=== PATIENT | female | born 1950 | race Caucasian/White ===

== ENCOUNTER 2016-05-08 17:25 | Emergency (ER) | payer MEDICARE, BC ==
[~2016-05-08] VITALS: Ht 167.6 cm; Wt 86.4 kg
[~2016-05-08 17:25] MED LIST: ABILIFY5 MG PO; AMBIEN10 MG PO; AMLODIPINE BES2.5 MG PO; AMOXICILLIN 8751 TAB PO; ASPIRIN 32325 MG/TAB PO; ASPIRIN 81M81 MG/TA2 PO; ASPIRIN E.C. 8181 MG PO; ATIVAN 0.50.5 MG/TAB PO; ATIVAN1 MG PO; BETAPACE 120MG120 MG PO; BETAPACEAF120 PO; BUSPAR5 MG PO; BUTRANS10 MCG/HR TD; BUTRANS15 MCG/HR TD; BYSTOLIC10 MG PO; CALCIUM PLUS1 TA1 PO; CALCIUM SUPPLEMENT PO; CALCIUM1 CAP PO; CATAPRES 0.1MG0.1 MG PO; CEPHALEXIN500 M1 PO; CHLORESTEROL MED; CRESTOR; CRESTOR 10MG10 MG PO; CRESTOR20 MG PO; DARVOCET N; DARVOCET-N-101 UDTAB PO; DESYREL 100MG100 MG PO; DESYREL 50MG50 MG PO; DIOVAN 160MG160 MG; DIOVAN 160MG160 MG PO; DIOVAN HCT PO; DIOVAN PO; DIOVAN/HCT 12.51 TAB PO; DUO-KAPS1 CAP PO; ELIQUIS 2.5 PO; FLEXERIL 1010 MG/TAB PO; FLEXERIL10 MG PO; FOSAMAX PO; HCTZ; HCTZ 25MG25 MG PO; HCTZ12.5TAB PO; IBUPROFEN600 MG PO; INDERAL 10MG10 MG PO; INDERAL 20MG20 MG PO; LASIX 20MG TABL20 MG; LASIX 20MG TABL20 MG PO; LEVAQUIN 750MG750 M1 PO; LIDODERM 5% PATC1 EA TP; LISINOPRIL PO; LISINOPRIL10 MG PO; LORTAB 7.5/5001 TAB PO; LOVASTATIN10 MG PO; LYRICA; LYRICA 100MG C100 M1 PO; LYRICA 50MG CAP50 MG PO; MACROBID 1100 MG/CAP PO; MAGNESIUM250 M1 PO; MELATONIN3 M1 PO; MELATONIN5 M1 PO; MOTRIN 800800 MG/TAB PO; MS CONTIN 115 MG/TAB PO; MULTI VITAMINS1 TAB PO; MULTIPLE VITAMI1 CAP PO; NEURONTIN100 MG/CAP PO; NEURONTIN400 MG/CAP PO; NEXIUM 20MG CAP20 MG PO; NITROQUICK0.4 MG SL; NITROSTAT0.4 MG/TAB SL; NORCO 325 MG-51 TAB PO; PERCOCET 325 MG1 TA2 PO; PERCOCET 325 MG1 TAB PO; PERCOCET 500 MG1 TAB PO; PERCODAN 325 MG1 TA1 PO; PHENERGAN 25 TA25 MG PO; PHENERGAN25 MG RC; PRADAXA 150MG150 MG PO; PRIL40; PRIL40 PO; PRISTIQ 50 MG T50 MG PO; PRISTIQ100 MG PO; PROAIR HFA0.09 MG/AC IH; PROMETHAZINE12.5 M5 PO; PROVENTIL0.09 MG/A1 IH; Pradaxa PO; RANEXA 500MG T500 MG PO; RANEXA500 MG PO; REMERON 15M15 MG/TA1 PO; RENEXA; RT ADVAIR 228 DISKUS IH; SINGULAIR 110 MG/TAB PO; TRAZODONE50 MG PO; TYLENOL 325MG325 MG PO; TYLENOL W/COD1 UDTAB PO; ULTRAM 50MG TAB50 MG; ULTRAM 50MG TAB50 MG PO; VIIBRYD40 MG PO; VISTARIL 2525 MG/CAP PO; VISTARIL PO; VISTARIL50 MG PO; VITAMIN D PO; WELLBUTRIN SR150 M1 PO; XANAX 0.5MG0.5 MG PO; ZOFRAN ODT4 MG PO; ZOFRAN8 MG PO; [UNRECOGNIZED DRUG - OTHER]
[2016-05-08 17:29] VITALS: TEMP 97.9
[2016-05-08 18:58] VITALS: BP 179/95; PULSE 66
== END 2016-05-08 19:02 | disposition home or self-care (01) ==
LOC: COL.ER 17:25
DX: G43.909 Migraine, unspecified, not intractable, without status migrainosus (principal); I10 Essential (primary) hypertension; I25.10 Atherosclerotic heart disease of native coronary artery without angina pectoris; Z95.1 Presence of aortocoronary bypass graft
CPT/HCPCS: J2300; J2550

== ENCOUNTER → 2016-05-23 | Outpatient (CLI) | payer MEDICARE, BC ==
[~2016-05-23] MED LIST changes: +ELIQUIS 5MG PO; +MEDROL4 MG; +MELATONIN5 M1 SL
== END ==
LOC: COL.RAD 05-21 13:30
DX: D44.0 Neoplasm of uncertain behavior of thyroid gland (principal)

== ENCOUNTER 2016-06-23 01:16 | Emergency (ER) | payer MEDICARE, BC ==
[~2016-06-23] VITALS: Ht 170.2 cm; Wt 90.9 kg
[~2016-06-23 01:16] MED LIST changes: -ELIQUIS 5MG PO; -MEDROL4 MG; -MELATONIN5 M1 SL
[2016-06-23 01:20] VITALS: PULSE 63; TEMP 98
[2016-06-23] MEDS ORDERED: ELIQUIS 5MG PO (01:25)
[2016-06-23] MEDS ORDERED: MELATONIN5 M1 SL (01:26)
[2016-06-23 02:18] VITALS: BP 153/92
== END 2016-06-23 02:34 | disposition home or self-care (01) ==
LOC: COL.ER 01:16
DX: G43.909 Migraine, unspecified, not intractable, without status migrainosus (principal); I25.10 Atherosclerotic heart disease of native coronary artery without angina pectoris
CPT/HCPCS: J2300; J2550

== ENCOUNTER 2016-07-30 15:50 | Emergency (ER) | payer MEDICARE, BC ==
[~2016-07-30] VITALS: Ht 170.2 cm; Wt 91.8 kg
[~2016-07-30 15:50] MED LIST changes: +ELIQUIS 5MG PO; +MELATONIN5 M1 SL
[2016-07-30 15:52] VITALS: TEMP 97.7
[2016-07-30 19:04] VITALS: BP 170/89; PULSE 74
== END 2016-07-30 19:05 | disposition home or self-care (01) ==
LOC: COL.ER 15:50
DX: G43.909 Migraine, unspecified, not intractable, without status migrainosus (principal); I48.91 Unspecified atrial fibrillation; I10 Essential (primary) hypertension; I25.10 Atherosclerotic heart disease of native coronary artery without angina pectoris; Z95.1 Presence of aortocoronary bypass graft; Z85.3 Personal history of malignant neoplasm of breast; Z79.01 Long term (current) use of anticoagulants
CPT/HCPCS: J2270; J2300; J2550

== ENCOUNTER 2016-08-27 23:27 | Emergency (ER) | payer MEDICARE, BC ==
[~2016-08-27] VITALS: Ht 170.2 cm; Wt 94.1 kg
[2016-08-27 23:37] VITALS: BP 128/74; TEMP 98.1
[2016-08-28 01:54] VITALS: PULSE 80
== END 2016-08-28 01:43 | disposition home or self-care (01) ==
LOC: COL.ER 23:27
DX: G43.909 Migraine, unspecified, not intractable, without status migrainosus (principal); I25.10 Atherosclerotic heart disease of native coronary artery without angina pectoris; Z95.1 Presence of aortocoronary bypass graft; I10 Essential (primary) hypertension; J45.909 Unspecified asthma, uncomplicated; F41.9 Anxiety disorder, unspecified; Z79.82 Long term (current) use of aspirin; G62.9 Polyneuropathy, unspecified; K21.9 Gastro-esophageal reflux disease without esophagitis
CPT/HCPCS: J2300; J2550

== ENCOUNTER 2016-09-05 00:13 | Emergency (ER) | payer MEDICARE, BC ==
[~2016-09-05] VITALS: Ht 170.2 cm; Wt 94.5 kg
[2016-09-05 00:16] VITALS: BP 186/94; TEMP 98.2
[2016-09-05] MEDS ORDERED: MEDROL4 MG (00:19)
[2016-09-05 01:13] VITALS: PULSE 71
== END 2016-09-05 01:23 | disposition home or self-care (01) ==
LOC: COL.ER 00:13
DX: R51 Headache (principal); G43.909 Migraine, unspecified, not intractable, without status migrainosus; F03.90 Unspecified dementia, unspecified severity, without behavioral disturbance, psychotic disturbance, mood disturbance, and anxiety; I25.10 Atherosclerotic heart disease of native coronary artery without angina pectoris; D64.9 Anemia, unspecified; Z95.1 Presence of aortocoronary bypass graft
CPT/HCPCS: J2300; J2550

== ENCOUNTER → 2016-10-04 | Outpatient (CLI) | payer MEDICARE, BC ==
[~2016-10-04] MED LIST changes: +MEDROL4 MG
== END ==
LOC: COL.RAD 09:02
DX: S09.90XA Unspecified injury of head, initial encounter (principal); W19.XXXA Unspecified fall, initial encounter; R51 Headache
CPT/HCPCS: A9585

== ENCOUNTER 2016-10-05 20:26 | Emergency (ER) | payer MEDICARE, BC ==
[~2016-10-05] VITALS: Ht 170.2 cm; Wt 95.0 kg
[2016-10-05 20:28] VITALS: BP 192/101; TEMP 98
[2016-10-05 21:15] LABS: BASO # 0.1 (0.0-0.2); BASO % 0.5 % (0.0-2.0); EOS # 0.2 (0.0-0.7); EOS % 2.2 % (0-4.0); GRAN # 8.1 (1.4-6.5); GRAN % 75.5 % (42.2-75.2); LYMPH # 1.6 (1.2-3.4); LYMPH % 14.8 % (20.0-51.0); MEAN CELL VOLUME 83 fl (80.0-100.0); MEAN CORPUSCULAR HEMOGLOBIN 28 pg (27.0-31.0); MEAN CORPUSCULAR HGB CONC 33 g/dl (33.0-37.0); MEAN PLATELET VOLUME 8.9 fl (7.4-10.4); MONO # 0.7 (0.1-0.6); MONO % 6.3 % (1.7-9.3); PLATELET COUNT 370 K/mm3 (130-400); RED BLOOD COUNT 4.36 M/mm3 (4.10-5.30); REDCELL DISTRIBUTION WIDTH-CV 14.8 % (11.5-14.5); WHITE BLOOD COUNT 10.7 K/mm3 (4.8-10.8)
[2016-10-05 21:27] LABS: ADJUSTED CALCIUM 9.7 mg/dL (8.4-10.2); ALBUMIN 3.4 gm/dL (3.5-5.0); BILIRUBIN,TOTAL 0.7 mg/dL (0.0-1.0); CALCIUM 9.2 mg/dL (8.4-10.2); CREATININE, serum 0.87 mg/dL (0.52-1.25); POTASSIUM 3.3 mmol/L (3.4-5.0); TOTAL PROTEIN 6.8 gm/dL (6.4-8.2)
[2016-10-05 23:16] VITALS: PULSE 68
== END 2016-10-05 23:17 | disposition home or self-care (01) ==
LOC: COL.ER 20:26
PROVIDERS: Emergency Medicine
DX: R19.7 Diarrhea, unspecified (principal); G43.909 Migraine, unspecified, not intractable, without status migrainosus; I48.91 Unspecified atrial fibrillation; Z79.01 Long term (current) use of anticoagulants; I25.10 Atherosclerotic heart disease of native coronary artery without angina pectoris; I10 Essential (primary) hypertension; J45.909 Unspecified asthma, uncomplicated; D64.9 Anemia, unspecified; Z85.3 Personal history of malignant neoplasm of breast
CPT/HCPCS: J2300; J2550; J7030

== ENCOUNTER 2016-10-21 01:51 | Emergency (ER) | payer MEDICARE, BC ==
[~2016-10-21] VITALS: Ht 170.2 cm; Wt 94.1 kg
[2016-10-21 01:53] VITALS: TEMP 99.7
[2016-10-21] MEDS ORDERED: ULTRAM 50MG TAB50 MG PO (02:14)
[2016-10-21 04:29] VITALS: BP 131/64; PULSE 68
== END 2016-10-21 04:29 | disposition home or self-care (01) ==
LOC: COL.ER 01:51
DX: S09.90XA Unspecified injury of head, initial encounter (principal); S39.92XA Unspecified injury of lower back, initial encounter; S29.9XXA Unspecified injury of thorax, initial encounter; S00.81XA Abrasion of other part of head, initial encounter; S30.0XXA Contusion of lower back and pelvis, initial encounter; I25.10 Atherosclerotic heart disease of native coronary artery without angina pectoris; Z95.1 Presence of aortocoronary bypass graft; G43.909 Migraine, unspecified, not intractable, without status migrainosus; W01.10XA Fall on same level from slipping, tripping and stumbling with subsequent striking against unspecified object, initial encounter; Y92.009 Unspecified place in unspecified non-institutional (private) residence as the place of occurrence of the external cause; J45.909 Unspecified asthma, uncomplicated
CPT/HCPCS: J2300; J2550

== ENCOUNTER 2016-12-18 22:15 | Emergency (ER) | payer MEDICARE, BC ==
[2016-12-18 22:24] VITALS: TEMP 99.7
[2016-12-19 00:03] LABS: BASO # 0.1 (0.0-0.2); BASO % 0.5 % (0.0-2.0); EOS # 0.2 (0.0-0.7); EOS % 1.9 % (0-4.0); GRAN # 7.8 (1.4-6.5); GRAN % 75.2 % (42.2-75.2); HEMOGLOBIN 14.1 g/dl (12.5-16.0); LYMPH # 1.6 (1.2-3.4); LYMPH % 15.5 % (20.0-51.0); MEAN CELL VOLUME 81 fl (80.0-100.0); MEAN CORPUSCULAR HEMOGLOBIN 27 pg (27.0-31.0); MEAN CORPUSCULAR HGB CONC 33 g/dl (33.0-37.0); MEAN PLATELET VOLUME 9.4 fl (7.4-10.4); MONO # 0.7 (0.1-0.6); MONO % 6.5 % (1.7-9.3); PLATELET COUNT 456 K/mm3 (130-400); REDCELL DISTRIBUTION WIDTH-CV 14.8 % (11.5-14.5); WHITE BLOOD COUNT 10.3 K/mm3 (4.8-10.8)
[2016-12-19 00:22] LABS: ADJUSTED CALCIUM 9.3 mg/dL (8.4-10.2); ALBUMIN 4.2 gm/dL (3.5-5.0); BILIRUBIN,TOTAL 0.8 mg/dL (0.0-1.0); CALCIUM 9.5 mg/dL (8.4-10.2); CREATININE, serum 0.8 mg/dL (0.52-1.25); POTASSIUM 3.5 mmol/L (3.4-5.0); TOTAL PROTEIN 7.9 gm/dL (6.4-8.2)
[2016-12-19 02:53] VITALS: BP 160/112
[2016-12-19 03:18] VITALS: PULSE 91
== END 2016-12-19 03:19 | disposition home or self-care (01) ==
LOC: COL.ER 22:15
PROVIDERS: Emergency Medicine
DX: R63.0 Anorexia (principal); R53.81 Other malaise; R53.1 Weakness; R19.7 Diarrhea, unspecified; B34.9 Viral infection, unspecified; I25.10 Atherosclerotic heart disease of native coronary artery without angina pectoris; I11.0 Hypertensive heart disease with heart failure; I50.9 Heart failure, unspecified; Z95.1 Presence of aortocoronary bypass graft; J45.909 Unspecified asthma, uncomplicated; G43.909 Migraine, unspecified, not intractable, without status migrainosus; E03.9 Hypothyroidism, unspecified
CPT/HCPCS: J2550; J2765; J7030

== ENCOUNTER → 2017-01-16 | Outpatient (CLI) | payer MEDICARE, BC | LOC: COL.RAD 10:29 | DX: N30.20 Other chronic cystitis without hematuria (principal); N28.89 Other specified disorders of kidney and ureter ==

== ENCOUNTER 2017-01-31 14:21 | Emergency (ER) | payer MEDICARE, BC ==
[~2017-01-31] VITALS: Ht 167.6 cm; Wt 86.4 kg
[2017-01-31 14:28] VITALS: BP 135/69; PULSE 68; TEMP 98.9
[2017-01-31] MEDS ORDERED: CEPHALEXIN500 M1 PO (16:46)
== END 2017-01-31 17:08 | disposition home or self-care (01) ==
LOC: COL.ER 14:21
DX: S81.011A Laceration without foreign body, right knee, initial encounter (principal); S20.212A Contusion of left front wall of thorax, initial encounter; I25.10 Atherosclerotic heart disease of native coronary artery without angina pectoris; I48.91 Unspecified atrial fibrillation; J44.9 Chronic obstructive pulmonary disease, unspecified; Z87.39 Personal history of other diseases of the musculoskeletal system and connective tissue; Z79.01 Long term (current) use of anticoagulants; Z79.82 Long term (current) use of aspirin; Z96.651 Presence of right artificial knee joint; W01.198A Fall on same level from slipping, tripping and stumbling with subsequent striking against other object, initial encounter; Y92.009 Unspecified place in unspecified non-institutional (private) residence as the place of occurrence of the external cause

== ENCOUNTER 2017-02-21 22:32 | Emergency (ER) | payer MEDICARE, BC ==
[~2017-02-21] VITALS: Ht 167.6 cm; Wt 90.9 kg
[2017-02-21 22:37] VITALS: TEMP 97.9
[2017-02-21 23:29] LABS: BASO % 0.4 % (0.0-2.0); EOS # 0.5 (0.0-0.7); EOS % 6.4 % (0-4.0); GRAN # 4.9 (1.4-6.5); GRAN % 60.8 % (42.2-75.2); LYMPH # 1.8 (1.2-3.4); LYMPH % 22.4 % (20.0-51.0); MEAN CELL VOLUME 81 fl (80.0-100.0); MEAN CORPUSCULAR HGB CONC 32 g/dl (33.0-37.0); MEAN PLATELET VOLUME 9.5 fl (7.4-10.4); MONO # 0.8 (0.1-0.6); MONO % 9.6 % (1.7-9.3); PLATELET COUNT 278 K/mm3 (130-400); RED BLOOD COUNT 3.97 M/mm3 (4.10-5.30)
[2017-02-21 23:30] LABS: HEMATOCRIT 32.3 % (37.0-47.0); HEMOGLOBIN 10.4 g/dl (12.5-16.0); MEAN CORPUSCULAR HEMOGLOBIN 26 pg (27.0-31.0)
[2017-02-21 23:41] LABS: ADJUSTED CALCIUM 8.8 mg/dL (8.4-10.2); ALBUMIN 3.7 gm/dL (3.5-5.0); BILIRUBIN,TOTAL 0.5 mg/dL (0.0-1.0); CALCIUM 8.6 mg/dL (8.4-10.2); CREATININE, serum 0.91 mg/dL (0.52-1.25); POTASSIUM 3.8 mmol/L (3.4-5.0); TOTAL PROTEIN 6.9 gm/dL (6.4-8.2)
[2017-02-22 01:26] VITALS: BP 157/85
[2017-02-22 02:04] VITALS: PULSE 62
== END 2017-02-22 02:07 | disposition home or self-care (01) ==
LOC: COL.ER 22:32
PROVIDERS: Nurse Practitioner
DX: J45.909 Unspecified asthma, uncomplicated (principal); I11.0 Hypertensive heart disease with heart failure; I50.9 Heart failure, unspecified; I25.10 Atherosclerotic heart disease of native coronary artery without angina pectoris; G43.909 Migraine, unspecified, not intractable, without status migrainosus; F41.9 Anxiety disorder, unspecified; Z95.5 Presence of coronary angioplasty implant and graft; Z79.82 Long term (current) use of aspirin

== ENCOUNTER 2017-03-04 12:04 | Observation (INO) | payer MEDICARE, BC ==
[~2017-03-04] VITALS: Ht 152.4 cm; Wt 83.4 kg
[~2017-03-04 12:04] MED LIST changes: +CEFTIN 250250 MG/TAB PO
[2017-03-04 15:18] LABS: COLLECTION METHOD CLEAN CATCH
[2017-03-04 15:39] LABS: MUCOUS Present /lpf; PH 7 (5-8); URINE APPEARANCE Clear; URINE BACTERIA None Seen /hpf; URINE BILIRUBIN Negative (NEGATIVE); URINE BLOOD Negative (NEGATIVE); URINE COLOR Yellow; URINE GLUCOSE 1+ (NEGATIVE); URINE KETONE 1+ (NEGATIVE); URINE LEUKOCYTE ESTERASE Negative (NEGATIVE); URINE PROTEIN(semi-quant) 2+ (NEGATIVE); URINE RBC 0-2 /hpf; URINE UROBILINOGEN Negative (NEGATIVE); URINE WBC 0-2 /hpf
[2017-03-04 15:56] LABS: BASO # 0.1 (0.0-0.2); BASO % 0.5 % (0.0-2.0); EOS % 0.2 % (0-4.0); GRAN # 8.5 (1.4-6.5); GRAN % 84.3 % (42.2-75.2); HEMOGLOBIN 15.1 g/dl (12.5-16.0); LYMPH # 1.2 (1.2-3.4); LYMPH % 11.4 % (20.0-51.0); MEAN CELL VOLUME 79 fl (80.0-100.0); MEAN CORPUSCULAR HEMOGLOBIN 26 pg (27.0-31.0); MEAN CORPUSCULAR HGB CONC 33 g/dl (33.0-37.0); MEAN PLATELET VOLUME 8.9 fl (7.4-10.4); MONO # 0.3 (0.1-0.6); MONO % 3.2 % (1.7-9.3); PLATELET COUNT 439 K/mm3 (130-400); RED BLOOD COUNT 5.79 M/mm3 (4.10-5.30); WHITE BLOOD COUNT 10.1 K/mm3 (4.8-10.8)
[2017-03-04 16:08] LABS: ADJUSTED CALCIUM 9.3 mg/dL (8.4-10.2); ALBUMIN 4.7 gm/dL (3.5-5.0); CALCIUM 9.9 mg/dL (8.4-10.2); CREATININE, serum 0.69 mg/dL (0.52-1.25); MAGNESIUM 1.4 mg/dL (1.6-2.3); PHOSPHOROUS 2.5 mg/dL (2.5-4.5); TOTAL PROTEIN 8.7 gm/dL (6.4-8.2)
[2017-03-04 16:14] LABS: POTASSIUM 2.9 mmol/L (3.4-5.0)
[2017-03-04 20:43] VITALS: BP 148/62; PULSE 84; TEMP 97.9
[2017-03-04 20:48] LABS: INFLUENZA A NEGATIVE; INFLUENZA B NEGATIVE
[2017-03-05] VITALS (7 sets, daily range): BP systolic 113–137; BP diastolic 56–90; PULSE 70–123; TEMP 97.3–98.3
[2017-03-05] MEDS ORDERED: BETAPACE 120MG120 MG PO (05:26)
[2017-03-05] MEDS ORDERED: BETAPACE 80MG80 MG PO (05:28)
[2017-03-05 07:13] LABS: BASO # 0.1 (0.0-0.2); BASO % 0.5 % (0.0-2.0); EOS # 0.2 (0.0-0.7); GRAN # 6.6 (1.4-6.5); GRAN % 68.2 % (42.2-75.2); HEMATOCRIT 40.3 % (37.0-47.0); LYMPH # 2.1 (1.2-3.4); LYMPH % 21.2 % (20.0-51.0); MEAN CELL VOLUME 81 fl (80.0-100.0); MEAN CORPUSCULAR HEMOGLOBIN 26 pg (27.0-31.0); MEAN CORPUSCULAR HGB CONC 32 g/dl (33.0-37.0); MEAN PLATELET VOLUME 9.5 fl (7.4-10.4); MONO # 0.7 (0.1-0.6); MONO % 7.7 % (1.7-9.3); PLATELET COUNT 389 K/mm3 (130-400); RED BLOOD COUNT 4.99 M/mm3 (4.10-5.30); WHITE BLOOD COUNT 9.7 K/mm3 (4.8-10.8)
[2017-03-05 07:26] LABS: ALBUMIN 3.7 gm/dL (3.5-5.0); BILIRUBIN,TOTAL 0.8 mg/dL (0.0-1.0); CALCIUM 8.8 mg/dL (8.4-10.2); CREATININE, serum 0.86 mg/dL (0.52-1.25); MAGNESIUM 1.9 mg/dL (1.6-2.3); POTASSIUM 3.1 mmol/L (3.4-5.0); TOTAL PROTEIN 6.9 gm/dL (6.4-8.2)
[2017-03-06 03:37] VITALS: PULSE 69; TEMP 97.9
[2017-03-06 07:14] LABS: CALCIUM 8.6 mg/dL (8.4-10.2); CREATININE, serum 1.03 mg/dL (0.52-1.25); POTASSIUM 4.1 mmol/L (3.4-5.0)
[2017-03-06 08:00] VITALS: BP 112/58; PULSE 73; TEMP 98
[2017-03-06] MEDS ORDERED: CEFTIN 250250 MG/TAB PO (11:44)
[2017-03-06 11:47] VITALS: BP 100/48; PULSE 66; TEMP 98
== END 2017-03-06 14:29 | disposition home or self-care (01) ==
LOC: COL.ER 12:04 → MEDICAL 17:35
PROVIDERS: Emergency Medicine; Internal Medicine; Physician Assistant
DX: R11.2 Nausea with vomiting, unspecified (principal); E87.6 Hypokalemia; E83.42 Hypomagnesemia; N39.0 Urinary tract infection, site not specified; I48.0 Paroxysmal atrial fibrillation; I25.10 Atherosclerotic heart disease of native coronary artery without angina pectoris; I10 Essential (primary) hypertension; J45.909 Unspecified asthma, uncomplicated; G43.909 Migraine, unspecified, not intractable, without status migrainosus; D64.9 Anemia, unspecified; E03.9 Hypothyroidism, unspecified; Z85.3 Personal history of malignant neoplasm of breast; F41.9 Anxiety disorder, unspecified; F03.90 Unspecified dementia, unspecified severity, without behavioral disturbance, psychotic disturbance, mood disturbance, and anxiety; K21.9 Gastro-esophageal reflux disease without esophagitis; R53.82 Chronic fatigue, unspecified; Z90.49 Acquired absence of other specified parts of digestive tract; Z79.01 Long term (current) use of anticoagulants; Z96.653 Presence of artificial knee joint, bilateral; Z95.1 Presence of aortocoronary bypass graft; Z82.49 Family history of ischemic heart disease and other diseases of the circulatory system; Z83.3 Family history of diabetes mellitus
CPT/HCPCS: G0378; J2405; J3475; J3480; J7030

== ENCOUNTER 2017-06-20 10:51 | Emergency (ER) | payer MEDICARE, BC ==
[~2017-06-20] VITALS: Ht 167.6 cm; Wt 81.8 kg
[~2017-06-20 10:51] MED LIST changes: +BETAPACE 80MG80 MG PO
[2017-06-20 10:53] VITALS: TEMP 97.9
[2017-06-20 11:40] LABS: ALANINE AMINOTRANSFERASE 24 U/L (9-52); ALKALINE PHOSPHATASE 132 U/L (50-136); ANION GAP 13 mmol/L (7-16); AST,SGOT 30 U/L (15-37); BILIRUBIN,TOTAL 0.3 mg/dL (0.0-1.0); BLOOD UREA NITROGEN 16 mg/dL (7-17); CALCIUM 8.8 mg/dL (8.4-10.2); CARBON DIOXIDE 30 mmol/L (22-30); CHLORIDE 97 mmol/L (98-107); CREATININE, serum 0.88 mg/dL (0.52-1.25); GLUCOSE 115 mg/dL (74-106); POTASSIUM 3.9 mmol/L (3.4-5.0); SODIUM 140 mmol/L (137-145); TOTAL PROTEIN 8.1 gm/dL (6.4-8.2)
[2017-06-20 11:48] LABS: BASO # 0.1 (0.0-0.2); BASO % 0.6 % (0.0-2.0); EOS # 0.3 (0.0-0.7); EOS % 3.7 % (0-4.0); GRAN # 5.6 (1.4-6.5); GRAN % 60.6 % (42.2-75.2); LYMPH # 2.5 (1.2-3.4); LYMPH % 27.2 % (20.0-51.0); MEAN CELL VOLUME 85 fl (80.0-100.0); MEAN CORPUSCULAR HGB CONC 33 g/dl (33.0-37.0); MEAN PLATELET VOLUME 9.9 fl (7.4-10.4); MONO # 0.7 (0.1-0.6); MONO % 7.6 % (1.7-9.3); PLATELET COUNT 356 K/mm3 (130-400); PROTHROMBIN TIME 23.2 SECONDS (9.7-12.8); RED BLOOD COUNT 4.23 M/mm3 (4.10-5.30); REDCELL DISTRIBUTION WIDTH-CV 15.8 % (11.5-14.5)
[2017-06-20 11:50] LABS: HEMATOCRIT 35.9 % (37.0-47.0); HEMOGLOBIN 11.7 g/dl (12.5-16.0); MEAN CORPUSCULAR HEMOGLOBIN 28 pg (27.0-31.0)
[2017-06-20 11:55] LABS: TROPONIN-I < 0.012 ng/mL (0.000-0.034)
[2017-06-20 12:04] LABS: COLLECTION METHOD CLEAN CATCH
[2017-06-20 12:09] LABS: MUCOUS Present /lpf; PH 7 (5-8); SQUAMOUS EPITHELIAL None Seen /hpf; URINE APPEARANCE Clear; URINE BACTERIA None Seen /hpf; URINE BILIRUBIN Negative (NEGATIVE); URINE BLOOD Negative (NEGATIVE); URINE COLOR Yellow; URINE GLUCOSE Negative (NEGATIVE); URINE KETONE Negative (NEGATIVE); URINE LEUKOCYTE ESTERASE Negative (NEGATIVE); URINE NITRATE Negative (NEGATIVE); URINE PROTEIN(semi-quant) Negative (NEGATIVE); URINE RBC 0-2 /hpf; URINE UROBILINOGEN Negative (NEGATIVE)
[2017-06-20 13:23] VITALS: BP 118/70; PULSE 62
== END 2017-06-20 13:25 | disposition home or self-care (01) ==
LOC: COL.ER 10:51
PROVIDERS: Emergency Medicine
DX: R42 Dizziness and giddiness (principal); R07.89 Other chest pain; Z95.1 Presence of aortocoronary bypass graft; Z79.82 Long term (current) use of aspirin; Z79.01 Long term (current) use of anticoagulants; Z79.84 Long term (current) use of oral hypoglycemic drugs
CPT/HCPCS: J7030

== ENCOUNTER 2017-08-01 16:25 | Emergency (ER) | payer MEDICARE, BC ==
[~2017-08-01] VITALS: Ht 167.6 cm; Wt 81.8 kg
[2017-08-01 16:33] VITALS: TEMP 97.8
[2017-08-01] MEDS ORDERED: ZOLOFT 50MG50 MG PO (17:33)
[2017-08-01 17:48] LABS: BASO % 0.2 % (0.0-2.0); EOS # 0.1 (0.0-0.7); EOS % 1.1 % (0-4.0); GRAN # 7.6 (1.4-6.5); GRAN % 80.4 % (42.2-75.2); HEMATOCRIT 42.1 % (37.0-47.0); HEMOGLOBIN 13.8 g/dl (12.5-16.0); LYMPH # 1.2 (1.2-3.4); LYMPH % 13.1 % (20.0-51.0); MEAN CELL VOLUME 84 fl (80.0-100.0); MEAN CORPUSCULAR HEMOGLOBIN 28 pg (27.0-31.0); MEAN CORPUSCULAR HGB CONC 33 g/dl (33.0-37.0); MEAN PLATELET VOLUME 9.2 fl (7.4-10.4); MONO # 0.5 (0.1-0.6); MONO % 4.9 % (1.7-9.3); PLATELET COUNT 343 K/mm3 (130-400); REDCELL DISTRIBUTION WIDTH-CV 15.1 % (11.5-14.5)
[2017-08-01 17:58] LABS: COLLECTION METHOD CATHETER
[2017-08-01 18:04] LABS: MUCOUS Present /lpf; PH 7 (5-8); SQUAMOUS EPITHELIAL None Seen /hpf; URINE APPEARANCE Clear; URINE BACTERIA None Seen /hpf; URINE BILIRUBIN Negative (NEGATIVE); URINE BLOOD Negative (NEGATIVE); URINE COLOR Yellow; URINE GLUCOSE Negative (NEGATIVE); URINE KETONE Negative (NEGATIVE); URINE LEUKOCYTE ESTERASE Negative (NEGATIVE); URINE NITRATE Negative (NEGATIVE); URINE PROTEIN(semi-quant) Negative (NEGATIVE); URINE RBC 0-2 /hpf; URINE UROBILINOGEN Negative (NEGATIVE)
[2017-08-01 18:18] LABS: ALANINE AMINOTRANSFERASE 19 U/L (9-52); ALBUMIN 3.7 gm/dL (3.5-5.0); ALKALINE PHOSPHATASE 186 U/L (50-136); ANION GAP 10 mmol/L (7-16); AST,SGOT 27 U/L (15-37); BILIRUBIN,TOTAL 0.6 mg/dL (0.0-1.0); BLOOD UREA NITROGEN 14 mg/dL (7-17); C-REACTIVE PROTEIN 2.7 mg/dL (0.0-0.9); CALCIUM 9.2 mg/dL (8.4-10.2); CARBON DIOXIDE 27 mmol/L (22-30); CHLORIDE 100 mmol/L (98-107); CREATININE, serum 0.71 mg/dL (0.52-1.25); GLUCOSE 138 mg/dL (74-106); POTASSIUM 3.6 mmol/L (3.4-5.0); SODIUM 137 mmol/L (137-145); TOTAL PROTEIN 7.9 gm/dL (6.4-8.2)
[2017-08-01 18:30] LABS: TROPONIN-I < 0.012 ng/mL (0.000-0.034)
[2017-08-01 19:30] VITALS: BP 139/66; PULSE 66
== END 2017-08-01 20:00 | disposition home or self-care (01) ==
LOC: COL.ER 16:25
PROVIDERS: Emergency Medicine
DX: F41.9 Anxiety disorder, unspecified (principal); R53.1 Weakness; I10 Essential (primary) hypertension; I48.91 Unspecified atrial fibrillation; I25.10 Atherosclerotic heart disease of native coronary artery without angina pectoris; Z85.3 Personal history of malignant neoplasm of breast; Z87.39 Personal history of other diseases of the musculoskeletal system and connective tissue; Z95.1 Presence of aortocoronary bypass graft; Z95.5 Presence of coronary angioplasty implant and graft; Z79.01 Long term (current) use of anticoagulants; Z79.82 Long term (current) use of aspirin
CPT/HCPCS: J7030

== ENCOUNTER 2017-09-05 21:56 | Emergency (ER) | payer MEDICARE, BC ==
[~2017-09-05] VITALS: Ht 170.2 cm; Wt 86.4 kg
[~2017-09-05 21:56] MED LIST changes: +ZOLOFT 50MG50 MG PO
[2017-09-05 22:08] VITALS: TEMP 97.8
[2017-09-06 00:02] VITALS: BP 193/103; PULSE 65
[2017-09-07] MEDS ORDERED: NORVASC 5MG5 MG/TAB PO (22:30)
== END 2017-09-06 00:02 | disposition home or self-care (01) ==
LOC: COL.ER 21:56
DX: G43.909 Migraine, unspecified, not intractable, without status migrainosus (principal); M79.7 Fibromyalgia; I10 Essential (primary) hypertension; F41.9 Anxiety disorder, unspecified; Z90.710 Acquired absence of both cervix and uterus; Z90.49 Acquired absence of other specified parts of digestive tract
CPT/HCPCS: J1170; J2550

== ENCOUNTER 2017-09-06 19:55 | Emergency (ER) | payer MEDICARE, BC ==
[~2017-09-06] VITALS: Ht 170.2 cm; Wt 86.4 kg
[2017-09-06 20:01] VITALS: BP 213/98; TEMP 98.5
[2017-09-06 21:30] VITALS: PULSE 66
[2017-09-07] MEDS ORDERED: NORVASC 5MG5 MG/TAB PO (22:30)
== END 2017-09-06 21:30 | disposition home or self-care (01) ==
LOC: COL.ER 19:55
DX: G43.909 Migraine, unspecified, not intractable, without status migrainosus (principal); Z79.82 Long term (current) use of aspirin
CPT/HCPCS: J2300; J2550

== ENCOUNTER 2017-09-07 19:07 | Emergency (ER) | payer MEDICARE, BC ==
[~2017-09-07] VITALS: Ht 167.6 cm; Wt 86.4 kg
[2017-09-07 19:13] VITALS: TEMP 98.3
[2017-09-07 20:38] LABS: BASO % 0.2 % (0.0-2.0); EOS % 0.3 % (0-4.0); GRAN # 9.8 (1.4-6.5); GRAN % 76.2 % (42.2-75.2); HEMATOCRIT 38.9 % (37.0-47.0); HEMOGLOBIN 12.9 g/dl (12.5-16.0); LYMPH # 2.2 (1.2-3.4); LYMPH % 16.8 % (20.0-51.0); MEAN CELL VOLUME 84 fl (80.0-100.0); MEAN CORPUSCULAR HEMOGLOBIN 28 pg (27.0-31.0); MEAN CORPUSCULAR HGB CONC 33 g/dl (33.0-37.0); MEAN PLATELET VOLUME 9.5 fl (7.4-10.4); MONO # 0.7 (0.1-0.6); MONO % 5.8 % (1.7-9.3); PLATELET COUNT 375 K/mm3 (130-400); RED BLOOD COUNT 4.66 M/mm3 (4.10-5.30)
[2017-09-07 20:48] LABS: ALANINE AMINOTRANSFERASE 17 U/L (9-52); ALBUMIN 4.1 gm/dL (3.5-5.0); ALKALINE PHOSPHATASE 125 U/L (50-136); ANION GAP 11 mmol/L (7-16); AST,SGOT 19 U/L (15-37); BILIRUBIN,TOTAL 0.4 mg/dL (0.0-1.0); BLOOD UREA NITROGEN 16 mg/dL (7-17); C-REACTIVE PROTEIN 0.6 mg/dL (0.0-0.9); CALCIUM 9.2 mg/dL (8.4-10.2); CARBON DIOXIDE 30 mmol/L (22-30); CHLORIDE 92 mmol/L (98-107); CREATINE KINASE 24 U/L (30-135); CREATININE, serum 0.74 mg/dL (0.52-1.25); GLUCOSE 141 mg/dL (74-106); SODIUM 133 mmol/L (137-145); TOTAL PROTEIN 8.1 gm/dL (6.4-8.2)
[2017-09-07 20:57] LABS: ERYTHROCYTE SEDIMENTATION RATE 22 mm/hr (0-30); TROPONIN-I < 0.012 ng/mL (0.000-0.034)
[2017-09-07 21:06] LABS: COLLECTION METHOD CLEAN CATCH
[2017-09-07 21:11] LABS: PH 8 (5-8); SQUAMOUS EPITHELIAL 0-2 /hpf; URINE APPEARANCE Clear; URINE BACTERIA None Seen /hpf; URINE BILIRUBIN Negative (NEGATIVE); URINE BLOOD Negative (NEGATIVE); URINE COLOR Straw; URINE GLUCOSE Negative (NEGATIVE); URINE KETONE Negative (NEGATIVE); URINE LEUKOCYTE ESTERASE Negative (NEGATIVE); URINE NITRATE Negative (NEGATIVE); URINE PROTEIN(semi-quant) Negative (NEGATIVE); URINE RBC 0-2 /hpf; URINE UROBILINOGEN Negative (NEGATIVE)
[2017-09-07 22:27] VITALS: BP 165/99
[2017-09-07] MEDS ORDERED: NORVASC 5MG5 MG/TAB PO (22:30)
[2017-09-07 22:34] VITALS: PULSE 76
[2017-09-08] MEDS ORDERED: VIIBRYD20 MG PO (06:54)
== END 2017-09-07 22:43 | disposition home or self-care (01) ==
LOC: COL.ER 19:07
PROVIDERS: Emergency Medicine
DX: G43.909 Migraine, unspecified, not intractable, without status migrainosus (principal); I10 Essential (primary) hypertension; Z79.82 Long term (current) use of aspirin
CPT/HCPCS: J1170; J2405; J7030

== ENCOUNTER 2017-09-08 05:45 | Emergency (ER) | payer MEDICARE, BC ==
[~2017-09-08] VITALS: Ht 167.6 cm; Wt 86.4 kg
[~2017-09-08 05:45] MED LIST changes: +NORVASC 5MG5 MG/TAB PO
[2017-09-08 05:49] VITALS: BP 159/81; TEMP 98.3
[2017-09-08] MEDS ORDERED: VIIBRYD20 MG PO (06:54)
[2017-09-08 07:40] VITALS: PULSE 70
== END 2017-09-08 07:40 | disposition home or self-care (01) ==
LOC: COL.ER 05:45
DX: G43.909 Migraine, unspecified, not intractable, without status migrainosus (principal); M79.1 Myalgia; I10 Essential (primary) hypertension; F41.9 Anxiety disorder, unspecified; I48.91 Unspecified atrial fibrillation; Z79.82 Long term (current) use of aspirin; Z79.891 Long term (current) use of opiate analgesic
CPT/HCPCS: J1630; J2550

== ENCOUNTER 2017-10-08 10:22 | Emergency (ER) | payer MEDICARE, BC ==
[~2017-10-08] VITALS: Ht 167.6 cm; Wt 84.1 kg
[~2017-10-08 10:22] MED LIST changes: +VIIBRYD20 MG PO
[2017-10-08 10:38] VITALS: TEMP 97.9
[2017-10-08 11:08] LABS: BASO # 0.1 (0.0-0.2); BASO % 0.6 % (0.0-2.0); EOS # 0.4 (0.0-0.7); EOS % 3.3 % (0-4.0); GRAN # 8.2 (1.4-6.5); GRAN % 72.2 % (42.2-75.2); HEMATOCRIT 41.4 % (37.0-47.0); HEMOGLOBIN 13.8 g/dl (12.5-16.0); LYMPH % 17.2 % (20.0-51.0); MEAN CELL VOLUME 85 fl (80.0-100.0); MEAN CORPUSCULAR HEMOGLOBIN 29 pg (27.0-31.0); MEAN CORPUSCULAR HGB CONC 33 g/dl (33.0-37.0); MEAN PLATELET VOLUME 8.6 fl (7.4-10.4); MONO # 0.7 (0.1-0.6); MONO % 6.3 % (1.7-9.3); PLATELET COUNT 382 K/mm3 (130-400); RED BLOOD COUNT 4.85 M/mm3 (4.10-5.30); REDCELL DISTRIBUTION WIDTH-CV 15.6 % (11.5-14.5)
[2017-10-08 11:18] LABS: ALBUMIN 4.3 gm/dL (3.5-5.0); BILIRUBIN,TOTAL 0.6 mg/dL (0.0-1.0); C-REACTIVE PROTEIN 1.2 mg/dL (0.0-0.9); CALCIUM 9.3 mg/dL (8.4-10.2); CREATININE, serum 0.77 mg/dL (0.52-1.25); POTASSIUM 3.7 mmol/L (3.4-5.0)
[2017-10-08 11:46] LABS: COLLECTION METHOD CLEAN CATCH
[2017-10-08 11:56] LABS: MUCOUS Present /lpf; PH 8 (5-8); SQUAMOUS EPITHELIAL 0-2 /hpf; URINE APPEARANCE Clear; URINE BACTERIA None Seen /hpf; URINE BILIRUBIN Negative (NEGATIVE); URINE BLOOD Negative (NEGATIVE); URINE COLOR Straw; URINE GLUCOSE Negative (NEGATIVE); URINE KETONE Negative (NEGATIVE); URINE LEUKOCYTE ESTERASE Negative (NEGATIVE); URINE NITRATE Negative (NEGATIVE); URINE PROTEIN(semi-quant) Negative (NEGATIVE); URINE RBC 0-2 /hpf; URINE UROBILINOGEN Negative (NEGATIVE)
[2017-10-08 12:42] VITALS: BP 185/98; PULSE 80
== END 2017-10-08 12:42 | disposition home or self-care (01) ==
LOC: COL.ER 10:22
PROVIDERS: Family Medicine
DX: E86.0 Dehydration (principal); R19.7 Diarrhea, unspecified; I10 Essential (primary) hypertension; I48.91 Unspecified atrial fibrillation; I25.10 Atherosclerotic heart disease of native coronary artery without angina pectoris; J44.9 Chronic obstructive pulmonary disease, unspecified; K21.9 Gastro-esophageal reflux disease without esophagitis; Z79.01 Long term (current) use of anticoagulants; Z79.82 Long term (current) use of aspirin; Z87.891 Personal history of nicotine dependence
CPT/HCPCS: J2405; J7030; J7120

== ENCOUNTER 2017-10-24 10:53 | Emergency (ER) | payer MEDICARE, BC ==
[~2017-10-24] VITALS: Ht 170.2 cm; Wt 88.6 kg
[2017-10-24 11:03] VITALS: TEMP 98
[2017-10-24 11:53] LABS: BASO # 0.1 (0.0-0.2); BASO % 0.5 % (0.0-2.0); EOS # 0.1 (0.0-0.7); EOS % 1.3 % (0-4.0); GRAN # 7.4 (1.4-6.5); GRAN % 77.4 % (42.2-75.2); HEMATOCRIT 42.7 % (37.0-47.0); HEMOGLOBIN 14.3 g/dl (12.5-16.0); LYMPH # 1.4 (1.2-3.4); LYMPH % 14.8 % (20.0-51.0); MEAN CELL VOLUME 85 fl (80.0-100.0); MEAN CORPUSCULAR HEMOGLOBIN 28 pg (27.0-31.0); MEAN CORPUSCULAR HGB CONC 34 g/dl (33.0-37.0); MONO # 0.6 (0.1-0.6); MONO % 5.8 % (1.7-9.3); PLATELET COUNT 442 K/mm3 (130-400); RED BLOOD COUNT 5.03 M/mm3 (4.10-5.30); REDCELL DISTRIBUTION WIDTH-CV 15.1 % (11.5-14.5)
[2017-10-24] MEDS ORDERED: VISTARIL50 MG PO (11:57)
[2017-10-24 12:02] LABS: INR 1.1 (0.8-3.0); PROTHROMBIN TIME 12.6 SECONDS (9.7-12.8)
[2017-10-24 12:05] LABS: PARTIAL THROMBOPLASTIN TIME 43.6 SECONDS (26.0-37.0)
[2017-10-24 12:10] LABS: ALBUMIN 4.2 gm/dL (3.5-5.0); BILIRUBIN,TOTAL 0.7 mg/dL (0.0-1.0); CREATININE, serum 0.73 mg/dL (0.52-1.25); MAGNESIUM 1.9 mg/dL (1.6-2.3); PHOSPHOROUS 2.8 mg/dL (2.5-4.5); POTASSIUM 3.5 mmol/L (3.4-5.0); TOTAL PROTEIN 7.9 gm/dL (6.4-8.2)
[2017-10-24 12:40] LABS: THYROID STIMULATING HORMONE 2.06 uIU/mL (0.465-4.680)
[2017-10-24 13:22] LABS: COLLECTION METHOD CLEAN CATCH
[2017-10-24 13:29] LABS: MUCOUS Present /lpf; PH 7 (5-8); SQUAMOUS EPITHELIAL 0-2 /hpf; URINE APPEARANCE Clear; URINE BACTERIA None Seen /hpf; URINE BILIRUBIN Negative (NEGATIVE); URINE BLOOD Negative (NEGATIVE); URINE COLOR Yellow; URINE GLUCOSE Negative (NEGATIVE); URINE KETONE Negative (NEGATIVE); URINE LEUKOCYTE ESTERASE Negative (NEGATIVE); URINE NITRATE Negative (NEGATIVE); URINE PROTEIN(semi-quant) Negative (NEGATIVE); URINE RBC 0-2 /hpf; URINE UROBILINOGEN Negative (NEGATIVE)
[2017-10-24 15:38] VITALS: BP 182/119; PULSE 83
== END 2017-10-24 15:48 | disposition home or self-care (01) ==
LOC: COL.ER 10:53
PROVIDERS: Emergency Medicine
DX: R19.7 Diarrhea, unspecified (principal); I48.91 Unspecified atrial fibrillation; I25.10 Atherosclerotic heart disease of native coronary artery without angina pectoris; F41.9 Anxiety disorder, unspecified; M79.7 Fibromyalgia
CPT/HCPCS: J7030; J7120

== ENCOUNTER 2017-11-08 21:37 | Emergency (ER) | payer MEDICARE, BC ==
[~2017-11-08] VITALS: Ht 170.2 cm; Wt 88.6 kg
[2017-11-08 21:46] VITALS: TEMP 97.7
[2017-11-08 21:56] LABS: COLLECTION METHOD CLEAN CATCH
[2017-11-08 22:05] LABS: MUCOUS Present /lpf; PH 7 (5-8); SQUAMOUS EPITHELIAL 0-2 /hpf; URINE APPEARANCE Clear; URINE BACTERIA None Seen /hpf; URINE BILIRUBIN Negative (NEGATIVE); URINE BLOOD Negative (NEGATIVE); URINE COLOR Yellow; URINE GLUCOSE Negative (NEGATIVE); URINE KETONE Negative (NEGATIVE); URINE LEUKOCYTE ESTERASE Negative (NEGATIVE); URINE NITRATE Negative (NEGATIVE); URINE PROTEIN(semi-quant) Negative (NEGATIVE); URINE RBC 0-2 /hpf; URINE UROBILINOGEN Negative (NEGATIVE)
[2017-11-08 22:12] LABS: BASO # 0.1 (0.0-0.2); BASO % 0.5 % (0.0-2.0); EOS # 0.3 (0.0-0.7); EOS % 2.8 % (0-4.0); GRAN # 7.3 (1.4-6.5); HEMATOCRIT 40.6 % (37.0-47.0); HEMOGLOBIN 13.7 g/dl (12.5-16.0); LYMPH % 19.3 % (20.0-51.0); MEAN CELL VOLUME 84 fl (80.0-100.0); MEAN CORPUSCULAR HEMOGLOBIN 29 pg (27.0-31.0); MEAN CORPUSCULAR HGB CONC 34 g/dl (33.0-37.0); MEAN PLATELET VOLUME 8.9 fl (7.4-10.4); MONO # 0.6 (0.1-0.6); PLATELET COUNT 343 K/mm3 (130-400); RED BLOOD COUNT 4.81 M/mm3 (4.10-5.30); REDCELL DISTRIBUTION WIDTH-CV 14.1 % (11.5-14.5)
[2017-11-08 22:25] LABS: ALANINE AMINOTRANSFERASE 21 U/L (9-52); ALBUMIN 3.9 gm/dL (3.5-5.0); ALKALINE PHOSPHATASE 136 U/L (50-136); ANION GAP 10 mmol/L (7-16); AST,SGOT 21 U/L (15-37); BILIRUBIN,TOTAL 0.5 mg/dL (0.0-1.0); BLOOD UREA NITROGEN 10 mg/dL (7-17); C-REACTIVE PROTEIN 1.5 mg/dL (0.0-0.9); CALCIUM 8.5 mg/dL (8.4-10.2); CARBON DIOXIDE 29 mmol/L (22-30); CHLORIDE 94 mmol/L (98-107); CREATININE, serum 0.65 mg/dL (0.52-1.25); GLUCOSE 140 mg/dL (74-106); LIPASE 49 U/L (23-300); POTASSIUM 3.6 mmol/L (3.4-5.0); SODIUM 133 mmol/L (137-145); TOTAL PROTEIN 7.4 gm/dL (6.4-8.2)
[2017-11-08 22:34] LABS: TROPONIN-I < 0.012 ng/mL (0.000-0.034)
[2017-11-08] MEDS ORDERED: BETAPACE 120MG120 MG PO (23:00)
[2017-11-09 00:34] VITALS: BP 119/60; PULSE 97
== END 2017-11-09 00:34 | disposition home or self-care (01) ==
LOC: COL.ER 21:37
PROVIDERS: Family Medicine
DX: R53.83 Other fatigue (principal); R53.81 Other malaise; I10 Essential (primary) hypertension; J45.909 Unspecified asthma, uncomplicated; G40.909 Epilepsy, unspecified, not intractable, without status epilepticus; M79.7 Fibromyalgia; F41.9 Anxiety disorder, unspecified; K21.9 Gastro-esophageal reflux disease without esophagitis; I25.10 Atherosclerotic heart disease of native coronary artery without angina pectoris; Z90.49 Acquired absence of other specified parts of digestive tract; Z90.710 Acquired absence of both cervix and uterus; Z90.89 Acquired absence of other organs; Z79.01 Long term (current) use of anticoagulants; Z95.1 Presence of aortocoronary bypass graft
CPT/HCPCS: J2405; J7030

== ENCOUNTER 2017-11-17 06:29 | Emergency (ER) | payer MEDICARE, BC ==
[~2017-11-17] VITALS: Ht 170.2 cm; Wt 91.1 kg
[2017-11-17 06:35] VITALS: BP 167/87; TEMP 98.2
[2017-11-17 08:08] VITALS: PULSE 71
== END 2017-11-17 08:09 | disposition home or self-care (01) ==
LOC: COL.ER 06:29
DX: G43.909 Migraine, unspecified, not intractable, without status migrainosus (principal); I10 Essential (primary) hypertension; F41.9 Anxiety disorder, unspecified; Z90.49 Acquired absence of other specified parts of digestive tract; Z95.1 Presence of aortocoronary bypass graft; Z90.89 Acquired absence of other organs
CPT/HCPCS: J2300; J2550

== ENCOUNTER 2017-11-27 08:44 | Emergency (ER) | payer MEDICARE, BC ==
[~2017-11-27] VITALS: Ht 170.2 cm; Wt 90.9 kg
[2017-11-27 10:04] LABS: ALBUMIN 4.1 gm/dL (3.5-5.0); BILIRUBIN,TOTAL 0.6 mg/dL (0.0-1.0); CALCIUM 8.8 mg/dL (8.4-10.2); CREATININE, serum 0.72 mg/dL (0.52-1.25); POTASSIUM 3.5 mmol/L (3.4-5.0); TOTAL PROTEIN 7.7 gm/dL (6.4-8.2)
[2017-11-27 10:18] LABS: BASO # 0.1 (0.0-0.2); BASO % 0.4 % (0.0-2.0); EOS # 0.7 (0.0-0.7); EOS % 4.6 % (0-4.0); GRAN # 10.2 (1.4-6.5); GRAN % 68.4 % (42.2-75.2); HEMATOCRIT 39.4 % (37.0-47.0); HEMOGLOBIN 13.5 g/dl (12.5-16.0); LYMPH # 2.7 (1.2-3.4); LYMPH % 18.4 % (20.0-51.0); MEAN CELL VOLUME 88 fl (80.0-100.0); MEAN CORPUSCULAR HEMOGLOBIN 30 pg (27.0-31.0); MEAN CORPUSCULAR HGB CONC 34 g/dl (33.0-37.0); MEAN PLATELET VOLUME 8.6 fl (7.4-10.4); MONO % 6.9 % (1.7-9.3); PLATELET COUNT 288 K/mm3 (130-400); RED BLOOD COUNT 4.48 M/mm3 (4.10-5.30); REDCELL DISTRIBUTION WIDTH-CV 16.6 % (11.5-14.5)
[2017-11-27 10:23] LABS: INR 0.9 (0.8-3.0); PROTHROMBIN TIME 10.5 SECONDS (9.7-12.8)
[2017-11-27 11:46] LABS: COLLECTION METHOD CLEAN CATCH
[2017-11-27 11:57] LABS: PH 8 (5-8); SQUAMOUS EPITHELIAL 0-2 /hpf; URINE APPEARANCE Hazy; URINE BACTERIA None Seen /hpf; URINE BILIRUBIN Negative (NEGATIVE); URINE BLOOD Negative (NEGATIVE); URINE COLOR Yellow; URINE GLUCOSE Negative (NEGATIVE); URINE KETONE Negative (NEGATIVE); URINE LEUKOCYTE ESTERASE Negative (NEGATIVE); URINE NITRATE Negative (NEGATIVE); URINE PROTEIN(semi-quant) Negative (NEGATIVE); URINE RBC 0-2 /hpf; URINE UROBILINOGEN Negative (NEGATIVE); URINE WBC 0-2 /hpf
[2017-11-27 12:24] VITALS: BP 167/82; PULSE 91; TEMP 97.2
== END 2017-11-27 12:26 | disposition home or self-care (01) ==
LOC: COL.ER 08:44
PROVIDERS: Emergency Medicine
DX: R53.81 Other malaise (principal); I25.10 Atherosclerotic heart disease of native coronary artery without angina pectoris; M79.7 Fibromyalgia; Z79.01 Long term (current) use of anticoagulants
CPT/HCPCS: J2405; J7030

== ENCOUNTER 2017-11-30 10:46 | Emergency (ER) | payer MEDICARE, BC ==
[~2017-11-30] VITALS: Ht 170.2 cm; Wt 90.9 kg
[2017-11-30 10:50] VITALS: TEMP 98.3
[2017-11-30] MEDS ORDERED: KLONOPIN 0.5MG0.5 MG PO (10:58)
[2017-11-30 11:28] LABS: BASO # 0.1 (0.0-0.2); BASO % 0.5 % (0.0-2.0); EOS # 0.5 (0.0-0.7); EOS % 4.3 % (0-4.0); GRAN # 8.4 (1.4-6.5); GRAN % 72.8 % (42.2-75.2); HEMATOCRIT 37.2 % (37.0-47.0); HEMOGLOBIN 12.1 g/dl (12.5-16.0); LYMPH # 1.5 (1.2-3.4); LYMPH % 13.1 % (20.0-51.0); MEAN CELL VOLUME 87 fl (80.0-100.0); MEAN CORPUSCULAR HEMOGLOBIN 28 pg (27.0-31.0); MEAN CORPUSCULAR HGB CONC 33 g/dl (33.0-37.0); MEAN PLATELET VOLUME 8.9 fl (7.4-10.4); MONO % 8.9 % (1.7-9.3); PLATELET COUNT 286 K/mm3 (130-400); RED BLOOD COUNT 4.27 M/mm3 (4.10-5.30); REDCELL DISTRIBUTION WIDTH-CV 14.5 % (11.5-14.5)
[2017-11-30 11:36] LABS: ALBUMIN 3.6 gm/dL (3.5-5.0); BILIRUBIN,TOTAL 0.4 mg/dL (0.0-1.0); CALCIUM 8.2 mg/dL (8.4-10.2); CREATININE, serum 0.59 mg/dL (0.52-1.25); POTASSIUM 3.9 mmol/L (3.4-5.0); TOTAL PROTEIN 6.9 gm/dL (6.4-8.2)
[2017-11-30 13:02] VITALS: BP 151/78; PULSE 79
== END 2017-11-30 13:02 | disposition home or self-care (01) ==
LOC: COL.ER 10:46
PROVIDERS: Emergency Medicine
DX: M79.7 Fibromyalgia (principal); G89.29 Other chronic pain; I48.91 Unspecified atrial fibrillation; I10 Essential (primary) hypertension; G43.909 Migraine, unspecified, not intractable, without status migrainosus; G62.9 Polyneuropathy, unspecified; Z95.5 Presence of coronary angioplasty implant and graft; Z96.653 Presence of artificial knee joint, bilateral; Z85.3 Personal history of malignant neoplasm of breast
CPT/HCPCS: J1170; J2550; J7030

== ENCOUNTER → 2017-12-03 | Outpatient (CLI) | payer MEDICARE, BC ==
[~2017-12-03] MED LIST changes: +KLONOPIN 0.5MG0.5 MG PO
== END ==
LOC: COL.RAD 07:11
DX: E27.40 Unspecified adrenocortical insufficiency (principal); R51 Headache
CPT/HCPCS: A9585; Q9967

== ENCOUNTER 2017-12-14 01:23 | Emergency (ER) | payer MEDICARE, BC ==
[~2017-12-14] VITALS: Ht 170.2 cm; Wt 90.9 kg
[2017-12-14 01:29] VITALS: BP 181/81; TEMP 98.6
[2017-12-14 02:08] LABS: BASO # 0.1 (0.0-0.2); BASO % 0.6 % (0.0-2.0); EOS # 0.4 (0.0-0.7); EOS % 5.2 % (0-4.0); GRAN # 5.1 (1.4-6.5); GRAN % 60.7 % (42.2-75.2); HEMATOCRIT 39.2 % (37.0-47.0); HEMOGLOBIN 12.8 g/dl (12.5-16.0); LYMPH # 2.1 (1.2-3.4); LYMPH % 25.7 % (20.0-51.0); MEAN CELL VOLUME 86 fl (80.0-100.0); MEAN CORPUSCULAR HEMOGLOBIN 28 pg (27.0-31.0); MEAN CORPUSCULAR HGB CONC 33 g/dl (33.0-37.0); MEAN PLATELET VOLUME 9.2 fl (7.4-10.4); MONO # 0.6 (0.1-0.6); MONO % 7.4 % (1.7-9.3); PLATELET COUNT 357 K/mm3 (130-400); RED BLOOD COUNT 4.58 M/mm3 (4.10-5.30); REDCELL DISTRIBUTION WIDTH-CV 14.2 % (11.5-14.5)
[2017-12-14 02:30] LABS: ALBUMIN 3.7 gm/dL (3.5-5.0); BILIRUBIN,TOTAL 0.6 mg/dL (0.0-1.0); CALCIUM 8.8 mg/dL (8.4-10.2); CREATININE, serum 0.82 mg/dL (0.52-1.25); POTASSIUM 3.1 mmol/L (3.4-5.0); TOTAL PROTEIN 7.1 gm/dL (6.4-8.2)
[2017-12-14 04:10] VITALS: PULSE 76
== END 2017-12-14 04:10 | disposition home or self-care (01) ==
LOC: COL.ER 01:23
PROVIDERS: Emergency Medicine
DX: R19.7 Diarrhea, unspecified (principal); E87.6 Hypokalemia; I48.91 Unspecified atrial fibrillation; I25.10 Atherosclerotic heart disease of native coronary artery without angina pectoris; M79.7 Fibromyalgia; Z90.49 Acquired absence of other specified parts of digestive tract; Z90.710 Acquired absence of both cervix and uterus; Z95.5 Presence of coronary angioplasty implant and graft
CPT/HCPCS: J2550; J7030

== ENCOUNTER 2017-12-18 09:56 | Emergency (ER) | payer MEDICARE, BC ==
[~2017-12-18] VITALS: Ht 170.2 cm; Wt 90.9 kg
[2017-12-18 09:59] VITALS: TEMP 99.1
[2017-12-18 10:27] LABS: BASO % 0.5 % (0.0-2.0); EOS # 0.2 (0.0-0.7); EOS % 2.5 % (0-4.0); GRAN # 6.2 (1.4-6.5); HEMATOCRIT 37.7 % (37.0-47.0); HEMOGLOBIN 12.6 g/dl (12.5-16.0); LYMPH # 1.3 (1.2-3.4); LYMPH % 16.3 % (20.0-51.0); MEAN CELL VOLUME 85 fl (80.0-100.0); MEAN CORPUSCULAR HEMOGLOBIN 28 pg (27.0-31.0); MEAN CORPUSCULAR HGB CONC 33 g/dl (33.0-37.0); MEAN PLATELET VOLUME 9.3 fl (7.4-10.4); MONO # 0.3 (0.1-0.6); MONO % 4.2 % (1.7-9.3); PLATELET COUNT 349 K/mm3 (130-400); RED BLOOD COUNT 4.43 M/mm3 (4.10-5.30); REDCELL DISTRIBUTION WIDTH-CV 14.2 % (11.5-14.5)
[2017-12-18 10:37] LABS: ALBUMIN 3.7 gm/dL (3.5-5.0); BILIRUBIN,TOTAL 0.5 mg/dL (0.0-1.0); CALCIUM 8.6 mg/dL (8.4-10.2); CREATININE, serum 0.72 mg/dL (0.52-1.25); TOTAL PROTEIN 7.2 gm/dL (6.4-8.2)
[2017-12-18 11:20] LABS: COLLECTION METHOD CLEAN CATCH
[2017-12-18 11:28] LABS: MUCOUS Present /lpf; PH 7 (5-8); SQUAMOUS EPITHELIAL 0-2 /hpf; URINE APPEARANCE Clear; URINE BACTERIA Rare /hpf; URINE BILIRUBIN Negative (NEGATIVE); URINE BLOOD Negative (NEGATIVE); URINE COLOR Yellow; URINE GLUCOSE Negative (NEGATIVE); URINE KETONE Negative (NEGATIVE); URINE LEUKOCYTE ESTERASE Negative (NEGATIVE); URINE NITRATE Negative (NEGATIVE); URINE PROTEIN(semi-quant) Negative (NEGATIVE); URINE RBC 0-2 /hpf; URINE UROBILINOGEN Negative (NEGATIVE); URINE WBC 0-2 /hpf
[2017-12-18] MEDS ORDERED: MACROBID 1100 MG/CAP PO (11:50)
[2017-12-18 12:02] VITALS: BP 138/69; PULSE 80
[2017-12-18] MEDS ORDERED: CORTEF 10MG TAB10 MG PO (16:14)
== END 2017-12-18 12:04 | disposition home or self-care (01) ==
LOC: COL.ER 09:56
PROVIDERS: Emergency Medicine
DX: R53.81 Other malaise (principal); I10 Essential (primary) hypertension; D64.9 Anemia, unspecified; G43.909 Migraine, unspecified, not intractable, without status migrainosus; I25.10 Atherosclerotic heart disease of native coronary artery without angina pectoris; K21.9 Gastro-esophageal reflux disease without esophagitis; Z95.5 Presence of coronary angioplasty implant and graft
CPT/HCPCS: J2405; J7030

== ENCOUNTER 2017-12-18 15:21 | Emergency (ER) | payer MEDICARE, BC ==
[~2017-12-18] VITALS: Ht 170.2 cm; Wt 90.9 kg
[2017-12-18 15:27] VITALS: TEMP 98.1
[2017-12-18] MEDS ORDERED: CORTEF 10MG TAB10 MG PO (16:14)
[2017-12-18 18:32] VITALS: BP 152/107
[2017-12-18 19:53] VITALS: PULSE 78
== END 2017-12-18 19:53 | disposition home or self-care (01) ==
LOC: COL.ER 15:21
DX: R53.81 Other malaise (principal); R53.83 Other fatigue; G43.909 Migraine, unspecified, not intractable, without status migrainosus; R35.0 Frequency of micturition; M79.7 Fibromyalgia; I25.10 Atherosclerotic heart disease of native coronary artery without angina pectoris; I48.91 Unspecified atrial fibrillation; F41.9 Anxiety disorder, unspecified; Z90.710 Acquired absence of both cervix and uterus; Z90.89 Acquired absence of other organs; Z79.01 Long term (current) use of anticoagulants; Z90.49 Acquired absence of other specified parts of digestive tract; Z98.890 Other specified postprocedural states; Z95.1 Presence of aortocoronary bypass graft
CPT/HCPCS: J1630; J1885; J2550

== ENCOUNTER 2018-06-20 14:00 | Outpatient (RCR) | payer MEDICARE, BC ==
[~2018-06-20 14:00] MED LIST changes: +CORTEF 10MG TAB10 MG PO
== END 2018-07-11 11:40 | disposition home or self-care (01) ==
LOC: WSC 14:00
DX: M79.7 Fibromyalgia (principal); M54.9 Dorsalgia, unspecified; M25.551 Pain in right hip

== ENCOUNTER 2018-07-24 05:54 | Day surgery (SDC) | payer MEDICARE, BC ==
[2018-07-24] VITALS (15 sets, daily range): BP systolic 104–184; BP diastolic 49–106; PULSE 61–71; TEMP 97.5
[~2018-07-24] VITALS: Ht 170.3 cm; Wt 110.3 kg
[2018-07-24 07:27] LABS: HEMATOCRIT 37.1 % (37.0-47.0); MEAN CELL VOLUME 83 fl (80.0-100.0); MEAN CORPUSCULAR HEMOGLOBIN 27 pg (27.0-31.0); MEAN CORPUSCULAR HGB CONC 32 g/dl (33.0-37.0); MEAN PLATELET VOLUME 8.5 fl (7.4-10.4); PLATELET COUNT 317 K/mm3 (130-400); RED BLOOD COUNT 4.45 M/mm3 (4.10-5.30); REDCELL DISTRIBUTION WIDTH-CV 13.7 % (11.5-14.5)
[2018-07-24 07:35] LABS: PROTHROMBIN TIME 11.8 SECONDS (9.7-12.8)
[2018-07-24 07:39] LABS: CALCIUM 8.9 mg/dL (8.4-10.2); CREATININE, serum 0.93 (0.52-1.25); POTASSIUM 4.5 mmol/L (3.4-5.0)
[2018-07-24] MEDS ORDERED: CORTEF5 MG PO (07:41)
[2018-07-24] MEDS ORDERED: MELAT3MGTAB PO (07:56)
[2018-07-24] MEDS ORDERED: SYNTHROID0.075 MG/T PO (07:57)
[2018-07-24] MEDS ORDERED: LIDODERM 5% PATC1 EA TP (07:57)
[2018-07-24] MEDS ORDERED: MULTI VITAMINS1 TAB PO (07:58)
[2018-07-24] MEDS ORDERED: DEMADEX 20MG20 M1 PO ×2 (07:58→10:45)
[2018-07-24] MEDS ORDERED: TYLENOL 325MG325 MG PO (07:59)
[2018-07-24] MEDS ORDERED: ASPIRIN 81M81 MG/TA2 PO (08:00)
[2018-07-24] MEDS ORDERED: CALCIUM GUMMY PO (08:01)
[2018-07-24] MEDS ORDERED: ALDACTONE 25MG25 M1 PO (08:02)
[2018-07-24] MEDS ORDERED: MAGNESIUM500 MG PO (08:03)
--- NOTE | 2018-07-24 08:59 | NUR ---
Pt to procedure at this time.
--- NOTE | 2018-07-24 09:20 | NUR ---
PLEASE SEE MERGE FOR ALL MEDICATION ADMINISTRATION TIMES,SEE ALSO FOR RASS ASSESSMENTDURING AND POST PROCEDURE, GROIN PREPPED.
--- NOTE | 2018-07-24 09:26 | NUR ---
PLEASE SEE MERGE FOR ALL MEDICATION ADMINISTRATION TIMES, ALSO FOR RASS ASSESSMENT DATA, GROIN PREPPED AND DRAPED.
[2018-07-24] MEDS ORDERED: KLOR-CON M2020 MEQ PO (10:48)
[2018-07-24] MEDS ORDERED: NORVASC 5MG5 MG/TAB PO (10:48)
--- NOTE | 2018-07-24 10:54 | NUR ---
Report received from Robinson Hernandez.Will await pt's arrival.
--- NOTE | 2018-07-24 11:20 | NUR ---
Per pt report she wears oxygen at 2 liters via nasal cannula at home.Pt o2 SATS dip to mid 80s when lying flat resting.Pt placed on 2 liters via nasal cannula at this time.
--- NOTE | 2018-07-24 15:53 | NUR ---
Discharge instructions given to pt.pt verbalizes understanding.INT removed,catheter tip intact.Pt escorted out via wheelchair by this nurse.
== END 2018-07-24 15:55 | disposition home or self-care (01) ==
LOC: COL.CAR 05:54
PROVIDERS: Internal Medicine Cardiovascular Disease
DX: I25.110 Atherosclerotic heart disease of native coronary artery with unstable angina pectoris (principal); I34.0 Nonrheumatic mitral (valve) insufficiency; Z95.1 Presence of aortocoronary bypass graft; I10 Essential (primary) hypertension; E78.5 Hyperlipidemia, unspecified; Z85.3 Personal history of malignant neoplasm of breast; M79.7 Fibromyalgia; Z86.73 Personal history of transient ischemic attack (TIA), and cerebral infarction without residual deficits; F41.9 Anxiety disorder, unspecified; J45.909 Unspecified asthma, uncomplicated; F32.9 Major depressive disorder, single episode, unspecified; K21.9 Gastro-esophageal reflux disease without esophagitis; G47.33 Obstructive sleep apnea (adult) (pediatric); I48.0 Paroxysmal atrial fibrillation; G89.29 Other chronic pain; M19.90 Unspecified osteoarthritis, unspecified site; Z90.49 Acquired absence of other specified parts of digestive tract; Z90.710 Acquired absence of both cervix and uterus; Z96.653 Presence of artificial knee joint, bilateral; Z88.1 Allergy status to other antibiotic agents; Z88.8 Allergy status to other drugs, medicaments and biological substances; Z79.01 Long term (current) use of anticoagulants; Z79.82 Long term (current) use of aspirin; Z80.3 Family history of malignant neoplasm of breast; Z83.3 Family history of diabetes mellitus; Z82.49 Family history of ischemic heart disease and other diseases of the circulatory system
CPT/HCPCS: J1644; J2250; J3010; Q9967